=== PATIENT | female | born 1965 | race Hispanic/Latino ===

== ENCOUNTER → 2017-06-14 | Outpatient (CLI) | payer OTHER ==
--- NOTE | 2017-06-14 12:29 | Diagnostic Imaging Report ---
PROCEDURE: L-SPINE COMPLETE COMPARISON: None. INDICATIONS: LOW BACK PAIN FINDINGS: The lumbar spine is in anatomic alignment without evidence of fracture, spondylolisthesis, or spondylolysis. Vertebral body heights are maintained. Moderate disc space narrowing at L5-S1. Moderate facet arthrosis at L4-L5 and severe L5-S1. No significant neuroforaminal narrowing of bilateral obliques. Severe right and moderate left SI joint sclerosis. The paraspinal soft tissues are normal. CONCLUSION: Moderate degenerative changes in the lower lumbar spine with moderate disc space narrowing at L5-S1 with severe facet arthrosis at L5-S1. Dictated by: Dickson Xiao M.D. on 06/14/2017 at 12:29 Electronically approved by: Dickson Xiao M.D. on 06/14/2017 at 12:29
== END ==
LOC: RAD 11:43
PROVIDERS: ATTEND Internal Medicine
DX: M54.5 Low back pain (principal)
CPT/HCPCS: 72110

== ENCOUNTER → 2017-08-02 | Outpatient (CLI) | payer OTHER ==
--- NOTE | 2017-08-06 08:20 | Diagnostic Imaging Report ---
#[id number] - MGSCRBIL #BILATERAL DIGITAL SCREENING MAMMOGRAM WITH CAD: 08/02/2017 CLINICAL: Routine screening. Comparison is made to exam dated: 07/28/2016 mammogram - [facility]. Current study contains 4 films. There are scattered fibroglandular elements in both breasts. Current study was also evaluated with a Computer Aided Detection (CAD) system. There are benign vascular calcifications in both breasts. There also are benign scattered calcifications in both breasts. No significant masses, calcifications, or other findings are seen in either breast. There has been no significant interval change. IMPRESSION: BENIGN There is no mammographic evidence of malignancy. A 1 year screening mammogram is recommended. The patient will be notified by letter of the results. Dann jimenez/marlene:08/03/2017 13:02:31 Renewals Manager: Jill HOROWITZ(Jesse)([place]), [facility] letter sent: Compared to Prior B9 Mammogram BI-RADS: 2 Benign
== END ==
LOC: MAMMO 09:20
PROVIDERS: ATTEND Internal Medicine
DX: Z12.31 Encounter for screening mammogram for malignant neoplasm of breast (principal)
CPT/HCPCS: 77067

== ENCOUNTER → 2017-09-06 | Outpatient (CLI) | payer OTHER ==
--- NOTE | 2017-09-06 11:52 | Diagnostic Imaging Report ---
PROCEDURE:US GALLBLADDER COMPARISON:None. INDICATIONS:RUQ PAIN TECHNIQUE: Cabrera-scale and color doppler transverse and longitudinal images of the right upper quadrant of the abdomen were obtained. FINDINGS: Liver: 14.9 cm in right mid-clavicular line. Increased echogenicity. No masses. Main portal vein: 1.1 cm, hepatopetal flow Gallbladder: No stones, sludge, wall thickening, or pericholecystic fluid. Common Bile Duct: 0.3 cm Sonographic Cowart's sign: Negative Right kidney: 10.5 cm. Normal echogenicity. No solid masses or hydronephrosis. Pancreas: The visualized portions are unremarkable. Inferior vena cava: Patent Aorta: Within normal limits Ascites: None in the right upper quadrant of the abdomen. CONCLUSION: 1. Diffuse hepatic steatosis. No focal lesions. 2. No sonographic evidence of cholelithiasis or cholecystitis. Javier Reynolds M.D. Dictated by: Javier Reynolds M.D. on 09/06/2017 at 11:55 Electronically approved by: Javier Reynolds M.D. on 09/06/2017 at 11:55
== END ==
LOC: US 10:38
PROVIDERS: ATTEND Internal Medicine
DX: R10.11 Right upper quadrant pain (principal)
CPT/HCPCS: 76705

== ENCOUNTER → 2017-09-20 | Outpatient (CLI) | payer OTHER ==
--- NOTE | 2017-09-20 20:43 | Diagnostic Imaging Report ---
Hepatobiliary Scan with Gallbladder Ejection Fraction Clinical information: 52 F with RUQ abdominal pain x 1 month. Report: Following intravenous administration of 7 millicuries of Tc-99m mebrofenin, dynamic images of the abdomen in the anterior projection were obtained through 30 minutes. Sincalide (CCK analog) 1.8 micrograms was administered intravenously over 30 minutes with additional imaging for determination of gallbladder ejection fraction. Perfusion to the liver is normal. Extraction of tracer from the blood pool by the liver parenchyma is normal. Tracer is seen promptly within the biliary tract. The gallbladder begins to fill by 5 minutes post-injection of tracer and fills adequately. Tracer is seen in the small bowel by 24 minutes. The gallbladder ejection fraction with administration of sincalide is 97% (normal greater than 40%). Impression: 1. Filling of the gallbladder excludes the diagnosis of acute cystic duct obstruction/acute cholecystitis. 2. Normal gallbladder ejection fraction of 97% does not support the clinical diagnosis of chronic cholecystitis/gallbladder dyskinesia. Signed by: Dr. Jill Lyn M.D. on 09/20/2017 8:40 PM
== END ==
LOC: NM 12:54
PROVIDERS: ATTEND Internal Medicine
DX: R10.11 Right upper quadrant pain (principal)
CPT/HCPCS: 78227; A9537

== ENCOUNTER → 2017-10-29 | Outpatient (CLI) | payer OTHER ==
--- NOTE | 2017-10-29 13:04 | Diagnostic Imaging Report ---
PROCEDURE: Frontal and lateral views of the chest. COMPARISON: None. INDICATIONS: COUGH FINDINGS: Lines/tubes: None. Lungs: The lungs are well inflated and clear. There is no evidence of pneumonia or pulmonary edema. Pleura: There is no pleural effusion or pneumothorax. Heart and mediastinum: The heart and the mediastinum are normal. Bones: No acute bony abnormality. IMPRESSION: 1. No acute cardiopulmonary disease. Dictated by: Suleiman Braga M.D. on 10/29/2017 at 13:10 Electronically approved by: Suleiman Braga M.D. on 10/29/2017 at 13:10
== END ==
LOC: RAD 12:30
PROVIDERS: ATTEND Internal Medicine Pulmonary Disease
DX: R05 Cough (principal)
CPT/HCPCS: 71046

== ENCOUNTER 2018-04-25 17:25 | Inpatient (IN) | payer OTHER ==
[~2018-04-25] VITALS: Ht 157.5 cm; Wt 77.2 kg
--- OUTSIDE RECORDS SUMMARY | 2018-04-25 17:28 | XMS REPORT ---
[facility] Address Unknown Phone Unavailable Care Team Providers Care Dietitian Helper Name Role Phone LLOYD DODSON Unavailable Unavailable JOVAN MURPHY Unavailable Unavailable Problems This patient has no known problems. Allergies, Adverse Reactions, Alerts This patient has no known allergies or adverse reactions. Medications This patient has no known medications. Results Test Description Test Time Test Comments Text Results Atomic Results Result Comments CHEST 2 VIEWS 2017-10-29 13:11:00 [place] [address] Patient Name: ZEINA BILLINGSLEY MR #: [id number] : 1965 Age/Sex: 52/F Req #: [id number] Adm Physician: Ordered by: LLOYD DODSON MD Report #: [id number] Location: [facility] Room/Bed: Procedure: [id number] DX/CHEST 2 VIEWS Exam Date: 10/29/17 Exam Time: 1246 REPORT STATUS: Signed PROCEDURE: Frontal and lateral views of the chest. COMPARISON: None. INDICATIONS: COUGH FINDINGS: Lines/tubes: None. Lungs: The lungs are well inflated and clear. There is no evidence of pneumonia or pulmonary edema. Pleura: There is no pleural effusion or pneumothorax. Heart and mediastinum: The heart and the mediastinum are normal. Bones: No acute bony abnormality. IMPRESSION: 1. No acute cardiopulmonary disease. Dictated by: Suleiman Adair M.D. on 10/29/2017 at 13:10 Electronically approved by: Suleiman Adair M.D. on 10/29/2017 at 13:10 Dictated By: SULEIMAN ADAIR MD 10 Transcribed By: CRYSTAL on 10/29/171310 COPY TO: LLOYD DODSON MD HEPTOBILIARY W PHARM 2017-09-20 20:38:00 [place] [address] Patient Name: ZEINA BILLINGSLEY MR #: [id number] : 1965 Age/Sex: 52/F Req #: [id number] Adm Physician: Ordered by: JOVAN MURPHY MD Report #: [id number] Location: [place] Room/Bed: Procedure: [id number] NM/HEPTOBILIARY W PHARM Exam Date: 09/20/17 Exam Time: 1321 REPORT STATUS: Signed Hepatobiliary Scan with Gallbladder Ejection Fraction Clinical information: 52 F with RUQ abdominal pain x 1 month. Report: Following intravenous administration of 7 millicuries of Tc-99m mebrofenin, dynamic images of the abdomen in the anterior projection were obtained through 30 minutes. Sincalide (CCK analog) 1.8 micrograms was administered intravenously over 30 minutes with additional imaging for determination of gallbladder ejection fraction. Perfusion to the liver is normal. Extraction of tracer from the blood pool by the liver parenchyma is normal. Tracer is seen promptly within the biliary tract. The gallbladder begins to fill by 5 minutes post-injection of tracer and fills adequately. Tracer is seen in the small bowel by 24 minutes. The gallbladder ejection fraction with administration of sincalide is 97% (normal greater than 40%). Impression: 1. Filling of the gallbladder excludes the diagnosis of acute cystic duct obstruction/acute cholecystitis. 2. Normal gallbladder ejection fraction of 97% does not support the clinical diagnosis of chronic cholecystitis/gallbladder dyskinesia. Signed by: Dr. Aliya Lyn M.D. on 09/20/2017 8:40 PM Dictated By: ALIYA LYN MD 39 Transcribed By: SIERRA on 09/20/172039 COPY TO: JOVAN MURPHY MD US GALLBLADDER 2017-09-06 11:55:00 [place] [address] Patient Name: ZEINA BILLINGSLEY MR #: [id number] : 1965 Age/Sex: 52/F Req #: [id number] Adm Physician: Ordered by: JOVAN MURPHY MD Report #: [id number] Location: [place] Room/Bed: Procedure: [id number] US/US GALLBLADDER Exam Date: Exam Time: REPORT STATUS: Signed PROCEDURE: US GALLBLADDER COMPARISON: None. INDICATIONS: RUQ PAIN TECHNIQUE: Cabrera- scale and color doppler transverse and longitudinal images of the right upper quadrant of the abdomen were obtained. FINDINGS: Liver: 14.9 cm in right mid-clavicular line. Increased echogenicity. No masses. Main portal vein: 1.1 cm, hepatopetal flow Gallbladder: No stones, sludge, wall thickening, or pericholecystic fluid. Common Bile Duct: 0.3 cm Sonographic Cowart's sign: Negative Right kidney: 10.5 cm. Normal echogenicity. No solid masses or hydronephrosis. Pancreas: The visualized portions are unremarkable. Inferior vena cava: Patent Aorta: Within normal limits Ascites: None in the right upper quadrant of the abdomen. CONCLUSION: 1. Diffuse hepatic steatosis. No focal lesions. 2. No sonographic evidence of cholelithiasis or cholecystitis. Javier Saha M.D. Dictated by: Javier Saha M.D. on 09/06/2017 at 11:55 Electronically approved by: Javier Saha M.D. on 09/06/2017 at 11:55 Dictated By: JAVIER SAHA MD 1155 Transcribed By: CRYSTAL on 09/06/17 1155 COPY TO: JOVAN MURPHY MD MAMMOGRAPHY DIGITAL SCR BILAT [place] [address] Patient Name: ZEINA BILLINGSLEY MR #: [id number] : 1965 Age/Sex: 52/F Req #: [id number] [facility] Physician: Ordered by: JOVAN MURPHY MD Report #: [id number] Location: MAMMO Room/Bed: Procedure: [id number] MG/MAMMOGRAPHY DIGITAL SCR BILAT Exam Date: 08/02/17 Exam Time: 0933 REPORT STATUS: Signed #[id number] - MGSCRBIL #BILATERAL DIGITAL SCREENING MAMMOGRAM WITH CAD: 08/02/2017 CLINICAL: Routine screening. Comparison is made to exam dated: 07/28/2016 mammogram - [facility]. Current study contains 4 films. There are scattered fibroglandular elements in both breasts. Current study was also evaluated with a Computer Aided Detection (CAD) system. There are benign vascular calcifications in both breasts. There also are benign scattered calcifications in both breasts. No significant masses, calcifications, or other findings are seen in either breast. There has been no significant interval change. IMPRESSION: BENIGN There is no mammographic evidence of malignancy. A 1 year screening mammogram is recommended. The patient will be notified by letter of the results. Dann jimenez/marlene:08/03/2017 13:02:31 Chopping Machine Operator: Aliya HOROWITZ(Jesse)(M), [facility] letter sent: Compared to Prior B9 Mammogram BI-RADS: 2 Benign Dictated By: DANN MELENDREZ DO 1302 Transcribed By: MARLENE on 08/03/17 1302 COPY TO: JOVAN MURPHY MD SP LUMBAR, COMPLETE MIN 4VW [place] [address] Patient Name: ZEINA BILLINGSLEY MR #: [id number] : 1965 Age/Sex: 52/F Req #: [id number] Adm Physician: Ordered by: JOVAN MURPHY MD Report #: [id number] Location: [facility] Room/Bed: Procedure: [id number] DX/SP LUMBAR, COMPLETE MIN 4VW Exam Date: 06/14/17 Exam Time: 1200 REPORT STATUS: Signed PROCEDURE: L-SPINE COMPLETE COMPARISON: None. INDICATIONS: LOW BACK PAIN FINDINGS: The lumbar spine is in anatomic alignment without evidence of fracture, spondylolisthesis, or spondylolysis. Vertebral body heights are maintained. Moderate disc space narrowing at L5-S1. Moderate facet arthrosis at L4-L5 and severe L5-S1. No significant neuroforaminal narrowing of bilateral obliques. Severe right and moderate left SI joint sclerosis. The paraspinal soft tissues are normal. CONCLUSION: Moderate degenerative changes in the lower lumbar spine with moderate disc space narrowing at L5-S1 with severe facet arthrosis at L5-S1. Dictated by: Dickson Leroy M.D. on 06/14/2017 at 12:29 Electronically approved by: Dickson Leroy M.D. on 06/14/2017 at 12:29 Dictated By: DICKSON LEROY MD 122 Transcribed By: CRYSTAL on 06/14/171228 COPY TO: JOVAN MURPHY MD KNEE RIGHT THREE VIEWS [place] [address] Patient Name: ZEINA BILLINGSLEY MR #: [id number] : 1965 Age/Sex: 51/F Req #: [id number] [facility] Physician: Ordered by: JOVAN MURPHY MD Report #: [id number] Location: [facility] Room/Bed: Procedure: [id number] DX/KNEE RIGHT THREE VIEWS Exam Date: 01/26/17 Exam Time: 958 REPORT STATUS: Signed PROCEDURE: X-RAY RIGHT KNEE, THREE OR MORE VIEWS COMPARISON: None. INDICATIONS: CHRONIC PAIN KNEE FINDINGS: The bones are well-mineralized. There are no fractures, subluxations, lytic or blastic lesions. Joint spaces are preserved. There is no evidence of a joint effusion. CONCLUSION: No acute osseous abnormalities. Dictated by: Per Wood M.D. on 01/26/2017 at 12:05 Electronically approved by: Per Wood M.D. on 01/26/2017 at 12:05 Dictated By: PER WOOD MD 04 Transcribed By: CRYSTAL on 01/26/17 120 COPY TO: JOVAN MURPHY MD SP LUMBAR, COMPLETE MIN 4VW [place] [address] Patient Name: ZEINA BILLINGSLEY MR #: [id number] : 1965 Age/Sex: 51/F Req #: [id number] Adm Physician: Ordered by: JOVAN MURPHY MD Report #: [id number] Location: [facility] Room/Bed: Procedure: [id number] DX/SP LUMBAR, COMPLETE MIN 4VW Exam Date: 01/26/17 Exam Time: 0959 REPORT STATUS: Signed PROCEDURE: L-SPINE COMPLETE COMPARISON: None. INDICATIONS: CHRONIC BACK PAIN FINDINGS: There are 5 lumbar-type vertebral bodies. The vertebral bodies are well-aligned without evidence of spondylolisthesis. There are no fractures, lytic or blastic lesions. Mild disc space narrowing and facet arthrosis at L5-S1. The disc-space heights are otherwise well-maintained. The sacroiliac joints are unremarkable. CONCLUSION: No acute osseous abnormalities. Mild degenerative changes at L5-S1. Dictated by: Per Wood M.D. on 01/26/2017 at 13:15 Electronically approved by: Per Wood M.D. on 01/26/2017 at 13:15 Dictated By: PER WOOD MD Transcribed By: CRYSTAL on 01/26/171314 COPY TO: JOVAN MURPHY MD CT BRAIN WO [place] [address] Patient Name: ZEINA BILLINGSLEY MR #: [id number] : 1965 Age/Sex: 51/F [facility] #: [id number] Req #: [id number] Adm Physician: Ordered by: JOVAN MURPHY MD Report #: [id number] Location: CT Room/Bed: Procedure: [id number] CT/CT BRAIN WO Exam Date: 11/08/16 Exam Time: 1435 REPORT STATUS: Signed EXAMINATION: Head CT HISTORY: Left-sided headache, dizziness for the last 3 days. COMPARISON: None. TECHNIQUE: Multidetector axial images were obtained with, without contrast from the foramen magnum to the vertex . The images were reconstructed using brain and bone algorithms. Thin section brain images were reformatted into coronal and sagittal planes. Intravenous contrast: None. Motion/streaking artifact limits the evaluation of the skull base and posterior cranial fossa. FINDINGS: Parenchyma: 1. No abnormal densities. 2. No mass or hemorrhage. No CT evidence of acute territorial vascular insult. Extra-axial spaces:No abnormal density. No extra-axial fluid collections Brain volume: Normal for age. Ventricles: No hydrocephalus or displacement. Arteries: No density suggestive of thrombus. Dural sinuses: No abnormal density. Extra-axial spaces: No abnormal density. Foramen magnum: No mass, Chiari malformation, or basilar invagination. Slightly low lying cerebellar tonsils. Sella: Large, partially into, mostly CSF filled. Paranasal/mastoid sinuses: Imaged portions unremarkable. Skull/Scalp: No lytic or blastic lesions. No fractures. IMPRESSION: No intracranial abnormalities. Signed by: Dr. Jan Hawk M.D. on 11/08/2016 3:28 PM Dictated By: JAN HAWK MD 9470 Transcribed By: SIERRA on 11/08/16 1528 COPY TO: JOVAN MURPHY MD
[2018-04-25] MEDS ORDERED: SODIUM CHLORIDE 0.9% 1000ML 1,000 ML IV ONE (17:45)
[2018-04-25] MEDS ORDERED: SODIUM CHLORIDE 0.9% 1000ML 1,000 ML ONE (17:49)
[2018-04-25 17:55] LABS: BASOPHILS % 0.2 % (0.0-1.0); EOSINOPHILS % 0.1 % (0.0-6.0); HEMATOCRIT 43.5 % (34.2-44.1); HEMOGLOBIN 14.5 g/dL (12.0-16.0); LYMPHOCYTES # (AUTO) 3.1 (1.0-3.2); LYMPHOCYTES % 20.6 % (18.0-39.1); MEAN CORPUSCULAR HEMOGLOBIN 27.2 pg (28-32); MEAN CORPUSCULAR HGB CONC 33.3 g/dL (31-35); MEAN CORPUSCULAR VOLUME 81.6 fL (81-99); MONOCYTES # (AUTO) 1.1 (0.2-0.8); MONOCYTES % 7.3 % (4.4-11.3); NEUTROPHILS # (AUTO) 10.6 (2.1-6.9); NEUTROPHILS % 71.3 % (38.7-80.0); PLATELET COUNT 281 x10e3/uL (140-360); RED BLOOD COUNT 5.33 x10e6/uL (3.6-5.1); RED CELL DISTRIBUTION WIDTH 12.6 % (11.7-14.4)
[2018-04-25 17:58] LABS: CLARITY,URINE SL CLOUDY (CLEAR); COLOR,URINE YELLOW (YELLOW); LEUKOCYTE ESTERASE ,URINE TRACE (NEGATIVE); NITRITE,URINE NEGATIVE (NEGATIVE); PROTEIN,URINE DIPSTICK NEGATIVE (NEGATIVE)
[2018-04-25 17:59] LABS: BILIRUBIN,URINE NEGATIVE (NEGATIVE); KETONES,URINE NEGATIVE (NEGATIVE); URINE UROBILINOGEN 0.2 mg/dL (0.2 - 1)
[2018-04-25 18:11] LABS: ALANINE AMINOTRANSFERASE 34 IU/L (0-55); ALBUMIN 3.9 g/dL (3.5-5.0); ALBUMIN/GLOBULIN RATIO 1.1 (0.8-2.0); ALKALINE PHOSPHATASE 73 IU/L (40-150); ANION GAP 14.6 mmol/L (8-16); BACTERIA,URINE FEW /HPF; BLOOD UREA NITROGEN 10 mg/dL (7-26); BUN/CREATININE RATIO 13 (6-25); CALCIUM 9.6 mg/dL (8.4-10.2); CARBON DIOXIDE 24 mmol/L (22-29); CHLORIDE 103 mmol/L (98-107); CREATININE, SERUM 0.79 mg/dL (0.57-1.11); EPITHELIAL CELLS,URINE FEW /LPF; EST GLOMERULAR FILTRATION RATE > 60 ML/MIN (60-); GLUCOSE 126 mg/dL (74-118); POTASSIUM 3.6 mmol/L (3.5-5.1); RBC,URINE 0-5 /HPF (0-5); SODIUM 138 mmol/L (136-145)
--- NOTE | 2018-04-25 18:52 | Diagnostic Imaging Report ---
EXAM: CT Abdomen and Pelvis WITHOUT contrast INDICATION: Abdominal pain. Flank pain. Back pain. COMPARISON: None TECHNIQUE: Abdomen and pelvis were scanned utilizing a multidetector helical scanner from the lung base to the pubic symphysis without administration of IV contrast. Absence of intravenous contrast decreases sensitivity for detection of focal lesions and vascular pathology. Coronal and sagittal reformations were obtained. Routine protocol was performed. IV CONTRAST: None. ORAL CONTRAST: Water RADIATION DOSE: Total DLP: 492.29 mGy*cm Estimated effective dose: (DLP x 0.015 x size factor) mSv All CT scans are performed using radiation dose reduction techniques. Technical factors are evaluated and adjusted to ensure appropriate moderation of exposure. Automated dose management technology is applied to adjust the radiation dose to minimize exposure while achieving a diagnostic-quality image. COMPLICATIONS: None FINDINGS: LINES and TUBES: None. LOWER THORAX: Unremarkable HEPATOBILIARY: No focal hepatic lesions. No biliary ductal dilation. GALLBLADDER: No radio-opaque stones or sludge. No wall thickening. SPLEEN: No splenomegaly. PANCREAS: No focal masses or ductal dilatation. ADRENALS: No adrenal nodules KIDNEYS/URETERS: No hydronephrosis. No cystic or solid mass lesions. Left perinephric fat stranding with punctate stone at the left distal ureterovesicular junction. Mild left-sided hydroureter. GI TRACT: No abnormal distention, wall thickening, or evidence of bowel obstruction. Appendix is normal. PELVIC ORGANS/BLADDER: Unremarkable. LYMPH NODES: No lymphadenopathy. VESSELS: Unremarkable. PERITONEUM / RETROPERITONEUM: No free air or fluid. BONES: Unremarkable. SOFT TISSUES: Unremarkable. IMPRESSION: 1. Left perinephric fat stranding with punctate stone at the left distal ureterovesicular junction. Mild left-sided hydroureter. Signed by: Dr. Monty Armendariz M.D. on 04/25/2018 6:49 PM
[2018-04-25] MEDS ORDERED: CEFTRIAXONE SOD 1 GM/NS 50 ML 50 ML IV ONE (19:00)
[2018-04-25] MEDS ORDERED: CEFTRIAXONE SOD 1 GM VIAL ONE (19:06)
[2018-04-25] MEDS ORDERED: ACETAMINOPHEN 325 MG TAB PO ONE (19:15)
[2018-04-25] MEDS ORDERED: KETOROLAC TROMETHAMINE 30 MG/ML VIAL IV ONE (19:15)
[2018-04-25 19:30] VITALS: BP 130/74
[2018-04-25] MEDS ORDERED: DIPHENHYDRAMINE HCL INJ 50 MG/ML VIAL IV PRN (22:00)
[2018-04-25] MEDS ORDERED: ZOLPIDEM TARTRATE 5 MG TAB PO PRN (22:00)
[2018-04-25] MEDS ORDERED: MORPHINE SULFATE INJ 4 MG/ML INJ 1ML IV PRN (22:00)
[2018-04-25] MEDS ORDERED: ENALAPRILAT IV INJ 1.25 MG/ML VIAL IV PRN (22:00)
[2018-04-26] VITALS (9 sets, daily range): BP systolic 107–140; BP diastolic 55–78
[2018-04-26] MEDS: SODIUM CHLORIDE 0.9% 1000ML 1,000 ML IV SCH ×4 (00:34→21:59)
--- NOTE | 2018-04-26 07:20 | NUR ---
Patient was rounded throughout the night, patient condition throughout the night was stable, patient endorsed to next shift for continuity of care.
[2018-04-26 08:07] LABS: BASOPHILS % 0.2 % (0.0-1.0); EOSINOPHILS % 0.2 % (0.0-6.0); HEMATOCRIT 39.5 % (34.2-44.1); HEMOGLOBIN 13.2 g/dL (12.0-16.0); LYMPHOCYTES # (AUTO) 2.6 (1.0-3.2); LYMPHOCYTES % 23.4 % (18.0-39.1); MEAN CORPUSCULAR HGB CONC 33.4 g/dL (31-35); MEAN CORPUSCULAR VOLUME 80.8 fL (81-99); MONOCYTES % 8.8 % (4.4-11.3); NEUTROPHILS # (AUTO) 7.5 (2.1-6.9); NEUTROPHILS % 66.9 % (38.7-80.0); PLATELET COUNT 250 x10e3/uL (140-360); RED BLOOD COUNT 4.89 x10e6/uL (3.6-5.1); RED CELL DISTRIBUTION WIDTH 12.4 % (11.7-14.4)
[2018-04-26 08:28] LABS: ANION GAP 12.8 mmol/L (8-16); BLOOD UREA NITROGEN 9 mg/dL (7-26); BUN/CREATININE RATIO 12 (6-25); CALCIUM 8.4 mg/dL (8.4-10.2); CARBON DIOXIDE 21 mmol/L (22-29); CHLORIDE 107 mmol/L (98-107); CREATININE, SERUM 0.73 mg/dL (0.57-1.11); EST GLOMERULAR FILTRATION RATE > 60 ML/MIN (60-); GLUCOSE 121 mg/dL (74-118); POTASSIUM 3.8 mmol/L (3.5-5.1); SODIUM 137 mmol/L (136-145)
[2018-04-26] MEDS ORDERED: CEFTRIAXONE SOD 1 GM VIAL IV SCH (09:00)
[2018-04-26] MEDS: FAMOTIDINE 20 MG/2 ML VIAL IV SCH ×2 (09:00→16:42)
--- NOTE | 2018-04-26 09:03 | History and Physical ---
CHIEF COMPLAINT: Left-sided flank pain associated with fever and burning in urine for the last few days. HISTORY OF PRESENT ILLNESS: A 52-year-old pleasant female with a past medical history of no significant medical problems was admitted at [facility] last evening with the above complaints. The patient was seen in my office the day before yesterday with the above complaints. As per patient, she started having left-sided flank pain associated with burning and frequency of urine for the last few days, and hence the patient came to my office to see me in the office. I diagnosed the patient with acute pyelonephritis. I started the patient on oral Cipro. The next day the patient came back to my office, which was yesterday complaining of still having fever, nausea and vomiting. Hence, the patient was sent to ER. In the emergency room, the patient was seen by the emergency room doctor. The was diagnosed with left-sided pyelonephritis with obstructive ureteric renal stone, and admitted for further care and treatment. At present, the patient is lying comfortably in bed in no apparent distress. No chest pain. No shortness of breath. No nausea, vomiting or diarrhea now. No abdominal pain. No loss of consciousness. No palpitations. No headaches. No hematemesis. No melena, hematuria or dysuria. Low-grade fever plus. No witnessed seizures. As per the patient, she is feeling much better this morning. PAST MEDICAL HISTORY: GERD. MEDICATIONS: Omeprazole 40 mg p.o. daily. ALLERGIES: NO KNOWN DRUG ALLERGIES. FAMILY HISTORY: Noncontributory. PAST SURGICAL HISTORY 1. Hysterectomy in 2001. 2. Knee surgery in 2018. SOCIAL HISTORY: No smoking. No alcohol. No illicit drug use. and lives with family. REVIEW OF SYSTEMS: As per HPI. PHYSICAL EXAMINATION GENERAL: Patient is alert, awake and oriented times 3. No apparent distress lying in bed. VITALS: T-max is 100.2, pulse 89 per minute, respiratory rate 20 per minute, blood pressure is 126/60, saturation is 96%. SKIN: No cyanosis. No icterus. No pallor. HEENT: Normocephalic and atraumatic. PERRLA. NECK: Soft and supple. No JVD. LUNGS: Air entry bilaterally equal. CV: No murmur, gallop or rub. ABDOMEN: Soft and nontender. Bowel sounds plus. WEIGHT LOSS PHYSICIAN: Alert, awake and oriented times 3. No focal deficit. EXTREMITIES: No cyanosis. No clubbing. PERIPHERAL VASCULAR: No calf pain. LABS: This morning white count is 11.27 and on admission white count was 14.86, hemoglobin 13.2, hematocrit 39.5, and platelets 250,000. Sodium 138, potassium 3.6, chloride 103, bicarb 24, BUN 10, creatinine 0.7, glucose 126. LFTs noted. Urine with blood 2+, rbcs 0-5, wbcs 6-10. Cultures pending. CT of abdomen and pelvis shows left perinephric fat-stranding with stool at the left distal ureterovesical junction, mild left-sided hydroureter. ASSESSMENT: Acute pyelonephritis with left-sided obstructive ureteric renal stone. PLAN: Admit the patient to the medical floor. IV fluids. Rocephin 1 g IVPB q.12 h. Pancultures. Urology consultation with Dr. Platt. Further care and treatment as per the course of the patient in the hospital. Discussed with the patient and daughter in detail. Job#: [id number]
--- NOTE | 2018-04-26 15:46 | NUR ---
SOCIAL WORK INITIAL ASSESSMENT Accounts Payable Supervisor to bedside to discuss plan of care with patient/family. CM/SW role and care transitions discussed. Anticipated discharge plan discussed along with duration of care. CM/SW discussed patients right to make decisions in care. CM/SW work hours given. Patient lives: IN OWN HOUSE WITH FAMILY Admit/Transfer: VIA ED FROM HOME POA/Emergency contact: PASTOR ALEGRIA [phone] Current/Previous Home Health: NONE PCP/Follow-up Care: JEFFREY Current/Previous DME: NONE Other Services: NONE Employment Status: HOUSEWIFE Areas of Concerns: NONE Referral Needs: NONE Education Needs: NONE IMM/DUNCAN given and signed (if applicable): NA Goal for discharge: RETURN HOME CM/SW left business card at the bedside with contact information. Name and number was also written on the patients whiteboard. Patient verbalized understanding of discussion. CM will follow-up with ongoing discharge and transition of care needs.
--- NOTE | 2018-04-26 16:20 | NUR ---
Dr Platt here and left nephrostomy tube ordered and consent being obtained.
[2018-04-26 16:30] LABS: INR 1.09; PROTHROMBIN TIME 15.1 seconds (11.9-14.5)
[2018-04-26 16:31] LABS: PARTIAL THROMBOPLASTIN TIME 37.5 seconds (23.8-35.5)
--- NOTE | 2018-04-26 16:39 | Consultation ---
DATE OF CONSULTATION: April 26, 2018 UROLOGY CONSULTATION REASON FOR CONSULTATION: Left hydronephrosis. HISTORY OF PRESENT ILLNESS: Lexi Dhaliwal is a 52-year-old woman with no previous urological history. She denies previous hematuria, dysuria, urinary tract infections, or urolithiasis. Denies any prior urological evaluation. The patient had fever at home to 102. She also left-sided flank pain radiating to the left lower quadrant. She reported to the emergency room yesterday and was found to have a low-grade fever and possible urinary tract infection. She was not septic. She was not hemodynamically stable. She was admitted. She was kept n.p.o. just in case intervention was necessary. The patient spiked to 101.4 fever early this afternoon. The patient reported dysuria prior to coming to the hospital, but denies any hematuria. PAST MEDICAL AND SURGICAL HISTORY 1. 4, para 4. 2. Status post total abdominal hysterectomy without oophorectomy. 3. Status post right knee meniscal surgery. 4. Gastroesophageal reflux disease. CURRENT MEDICATIONS: Please refer to the MAR. ALLERGIES: NONE KNOWN. SOCIAL HISTORY: The patient denies smoking, ethanol or drug use. The patient is a homemaker. She has a supportive family at the bedside. FAMILY HISTORY: Noncontributory to the active urological problems. REVIEW OF SYSTEMS: As consistent with the above history of present illness and past medical history. Otherwise, negative for all other systems. PHYSICAL EXAMINATION GENERAL: A healthy-appearing 52-year-old woman lying in bed in no apparent distress. She is warm to the touch and is spiking fever as we speak. ABDOMEN: Soft and nondistended. It is tender in the left flank with mild left-sided costovertebral angle tenderness. Kidneys are not palpable without hepatosplenomegaly. No obvious evidence of hernia. The patient is obese. For the remaining physical examination systems, please refer to the admission history and physical on the chart. LABORATORY STUDIES: The patient's CT scan of the abdomen and pelvis reveals a very small left distal ureteral stone with left hydroureteronephrosis and left perinephric stranding. Her white blood cell count upon admission was 14,860. Today, it is better at 11,270. Hemoglobin is 13.2 and platelets 250,000. The patient's creatinine is 0.73. Her calcium is normal at 8.4. Urinalysis significant for 6-10 wbcs without any significant rbcs, although there is 2+ blood in the urine on dipstick. ASSESSMENT 1. Left hydroureteronephrosis. 2. Left distal ureteral stone. 3. Left pyelonephritis. 4. Urinary tract infection. 5. Impending urosepsis with current spike in fever. 6. Leukocytosis. 7. Left renal colic. 8. Obesity. 9. Microhematuria. PLAN: I discussed with the patient the risks, benefits and alternatives, including ureteral stenting versus percutaneous nephrostomy. I recommend to proceed with emergent left percutaneous nephrostomy with obtaining of a culture. Continued intravenous antibiotics. Once the patient is completely cooled off, we may take her to the operating room to perform ureteroscopy, place a stent and remove her nephrostomy. Ongoing urological followup is a must. The patient understands the risks, benefits and alternatives of various modalities, and elects to proceed with percutaneous nephrostomy as recommended. Thank you very much for involving us in the care of your patient. Will be happy to follow her along with you, as well as an outpatient. Job#: [id number] RI cc:JOVAN MURPHY M.D.
--- NOTE | 2018-04-26 17:10 | Diagnostic Imaging Report ---
EXAM: Renal Ultrasound INDICATION: Obstructing stone on the left with left hydroureter, query hydronephrosis. COMPARISON: CT Abdomen/Pelvis 04/25/2018. TECHNIQUE: Transverse and longitudinal images of the kidneys and bladder were obtained. FINDINGS: Right Kidney: Length: 10.8 x 5.0 x 5.3 cm Appearance: Normal echogenicity. Collecting system: No hydronephrosis Stones: None Cyst/Mass: None Left Kidney: Length: 10.9 x 5.1 x 4.3 cm Appearance: Normal echogenicity. Collecting system: No hydronephrosis Stones: None Cyst/Mass: None Bladder: Unremarkable in appearance. No ureteral jets are seen bilaterally. IMPRESSION: Unremarkable renal ultrasound. No evidence of hydronephrosis. Signed by: Dr. Ted Dias MD on 04/26/2018 5:07 PM
[2018-04-26] MEDS: ACETAMINOPHEN 325 MG TAB PO PRN (19:59)
--- NOTE | 2018-04-26 20:00 | NUR ---
PATIENT HAS A TEMPERATURE OF 100.0 AND SHE C/O LEFT FLANK PAIN WITH PAIN SCORE #4. MEDICATED WITH TYLENOL ORDERED, EXTRA BLANKETS REMOVED FROM THE PATIENT. NO RESPIRATORY DISTRESS OBSERVED, FAMILY MEMBERS VISITING WITH HER AND CALL LIGHT WITHIN EASY REACH.
[2018-04-26] MEDS ORDERED: SODIUM CHLORIDE 0.9% 50ML 50 ML ONE (21:21)
[2018-04-26] MEDS: CEFTRIAXONE SOD 1 GM/NS 50 ML 50 ML IV SCH (21:35)
--- NOTE | 2018-04-26 23:37 | NUR ---
ASSISTED PATIENT WITH ADLS, NO DISTRESS OBSERVED AND SHE DENIES PAIN AT THIS TIME. CALL LIGHT WITHIN EASY REACH, SHE'S INSTRUCTED TO CALL FOR ASSISTANCE NEEDED.
[2018-04-27] VITALS (8 sets, daily range): BP systolic 104–127; BP diastolic 55–77
--- NOTE | 2018-04-27 03:38 | NUR ---
RESTING IN BED WITH EYES OPEN, NO DISTRESS OBSERVED AND HE DENIES PAIN. URINE STRAINED SEVERAL TIMES, NO STONES OBSERVED. CALL LIGHT WITHIN EASY REACH, INSTRUCTED TO CALL FOR ASSISTANCE NEEDED. Addendum: 04/27/18 at 0353 by Nathaly Day RN SHE DENIES PAIN.
[2018-04-27] MEDS: ACETAMINOPHEN 325 MG TAB PO PRN (04:01)
[2018-04-27 05:26] LABS: BASOPHILS % 0.4 % (0.0-1.0); EOSINOPHILS # (AUTO) 0.2 (0.0-0.4); EOSINOPHILS % 2.5 % (0.0-6.0); HEMATOCRIT 39.1 % (34.2-44.1); HEMOGLOBIN 12.6 g/dL (12.0-16.0); LYMPHOCYTES # (AUTO) 2.7 (1.0-3.2); LYMPHOCYTES % 31.2 % (18.0-39.1); MEAN CORPUSCULAR HEMOGLOBIN 26.8 pg (28-32); MEAN CORPUSCULAR HGB CONC 32.2 g/dL (31-35); MONOCYTES # (AUTO) 0.9 (0.2-0.8); MONOCYTES % 10.7 % (4.4-11.3); NEUTROPHILS # (AUTO) 4.7 (2.1-6.9); NEUTROPHILS % 54.7 % (38.7-80.0); PLATELET COUNT 256 x10e3/uL (140-360); RED BLOOD COUNT 4.71 x10e6/uL (3.6-5.1); RED CELL DISTRIBUTION WIDTH 12.2 % (11.7-14.4)
[2018-04-27 05:57] LABS: ALANINE AMINOTRANSFERASE 25 IU/L (0-55); ALBUMIN/GLOBULIN RATIO 0.9 (0.8-2.0); ALKALINE PHOSPHATASE 57 IU/L (40-150); ANION GAP 12.9 mmol/L (8-16); BLOOD UREA NITROGEN 7 mg/dL (7-26); BUN/CREATININE RATIO 9 (6-25); CALCIUM 8.6 mg/dL (8.4-10.2); CARBON DIOXIDE 23 mmol/L (22-29); CHLORIDE 110 mmol/L (98-107); CREATININE, SERUM 0.75 mg/dL (0.57-1.11); EST GLOMERULAR FILTRATION RATE > 60 ML/MIN (60-); GLUCOSE 113 mg/dL (74-118); POTASSIUM 3.9 mmol/L (3.5-5.1); SODIUM 142 mmol/L (136-145)
[2018-04-27] MEDS: FAMOTIDINE 20 MG/2 ML VIAL IV SCH ×2 (08:57→16:24)
[2018-04-27] MEDS: CEFTRIAXONE SOD 1 GM/NS 50 ML 50 ML IV SCH ×2 (08:57→20:27)
--- NOTE | 2018-04-27 09:36 | NUR ---
RECEIVED PATIENT FROM OBS ROOM 175. PATIENT IS AWAKE, ALERT, AND IN STABLE CONDITION WITH NO S/S OF RESPIRATORY DISTRESS. PATIENT C/O PAIN BUT WANTS TO SHOWER FIRST BEFORE RECEIVING PAIN MEDICATION. URINE COLLECTION HAT PLACED ON TOILET AND PATIENT REMAINS AWARE OF STAFF'S NEED TO STRAIN URINE. DAUGHTER PRESENT IN ROOM.
--- NOTE | 2018-04-27 10:01 | NUR ---
patient transferred to floor. all personal belongings gathered by patient. vitals stable with no distress. family at BS.
[2018-04-27] MEDS: SODIUM CHLORIDE 0.9% 1000ML 1,000 ML IV SCH ×2 (10:30→20:27)
--- NOTE | 2018-04-27 15:57 | NUR ---
CALL PLACED OUT TO DR. MURPHY REGARDING PATIENT VOMITING TWICE- AWAITING A CALLBACK FOR MEDICATION ORDER.
[2018-04-27] MEDS ORDERED: ACETAMINOPHEN 325 MG TAB PO PRN (16:30)
[2018-04-27] MEDS: ONDANSETRON HCL 4 MG ORAL DISINTEGRATING TAB PO PRN (17:10)
[2018-04-27] MEDS: PANTOPRAZOLE 40 MG 10ML VIAL IV SCH (17:13)
[2018-04-27] MEDS: MORPHINE SULFATE INJ 4 MG/ML INJ 1ML IV PRN (17:15)
--- NOTE | 2018-04-27 18:56 | NUR ---
PATIENT IS IN STABLE CONDITION WITH NO S/S OF RESPIRATORY DISTRESS. NO PAIN VOICED. IV FLUIDS INFUSING. FAMILY MEMBERS PRESENT IN ROOM. CALL LIGHT IS WITHIN REACH, PATIENT INSTRUCTED TO CALL FOR ASSISTANCE NEEDED. REPORT GIVEN TO ONCOMING NURSE.
--- NOTE | 2018-04-27 19:10 | NUR ---
RECEIVED PATIENT IN BED WITH FAMILY AT BEDSIDE. NO S/S OF RESP DISTRESS. CALL LIGHT WITHIN REACH AND INSTRUCTED TO CALL FOR ASSISTANCE. BED ALARM REFUSED.
--- NOTE | 2018-04-27 22:44 | NUR ---
Patient C/O SERRANO, and requesting tylenol and ice bag.
[2018-04-28] VITALS (7 sets, daily range): BP systolic 107–121; BP diastolic 63–78
[2018-04-28] MEDS: SODIUM CHLORIDE 0.9% 1000ML 1,000 ML IV SCH ×3 (04:54→20:10)
[2018-04-28 05:35] LABS: ANION GAP 9.8 mmol/L (8-16); BLOOD UREA NITROGEN 5 mg/dL (7-26); BUN/CREATININE RATIO 6 (6-25); CALCIUM 8.8 mg/dL (8.4-10.2); CARBON DIOXIDE 25 mmol/L (22-29); CHLORIDE 107 mmol/L (98-107); CREATININE, SERUM 0.77 mg/dL (0.57-1.11); EST GLOMERULAR FILTRATION RATE > 60 ML/MIN (60-); GLUCOSE 98 mg/dL (74-118); POTASSIUM 3.8 mmol/L (3.5-5.1); SODIUM 138 mmol/L (136-145)
--- NOTE | 2018-04-28 07:30 | NUR ---
PATIENT IS AWAKE AND RESTING IN BED- PATIENT IS IN STABLE CONDITION WITH NO S/S OF RESPIRATORY DISTRESS. PATIENT STATES CURRENT LEFT FLANK PAIN IS 4/10 BUT DOES NOT WANT ANY MEDICATION AT THIS TIME. IV FLUIDS INFUSING. DAUGHTER PRESENT IN ROOM. CALL LIGHT IS WITHIN REACH, PATIENT INSTRUCTED TO CALL FOR ASSISTANCE NEEDED.
[2018-04-28] MEDS: FAMOTIDINE 20 MG/2 ML VIAL IV SCH ×2 (09:00→17:26)
[2018-04-28] MEDS: PANTOPRAZOLE 40 MG 10ML VIAL IV SCH (09:00)
[2018-04-28] MEDS: CEFTRIAXONE SOD 1 GM/NS 50 ML 50 ML IV SCH ×2 (09:38→20:10)
[2018-04-28] MEDS ORDERED: ACETAMINOPHEN 325 MG TAB PO PRN ×2 (09:45→10:15)
[2018-04-28] MEDS ORDERED: IBUPROFEN 400 MG TAB PO NR (14:30)
[2018-04-28] MEDS ORDERED: CITRATE OF MAGNESIA 300ML BOTTLE PO NR ×2 (16:30→20:00)
--- NOTE | 2018-04-28 19:00 | NUR ---
RECEIVED PATIENT IN BED WITH FAMILY AT BEDSIDE. NO S/S OF RESP DISTRESS. CALL LIGHT WITHIN REACH AND INSTRUCTED TO CALL FOR ASSISTANCE. BED ALARM REFUSED.
--- NOTE | 2018-04-28 19:01 | NUR ---
PATIENT IS RESTING IN BED- IN STABLE CONDITION WITH NO S/S OF RESPIRATORY DISTRESS. NO PAIN VOICED. IV FLUIDS INFUSING. DAUGHTER AND PRESENT IN ROOM. PATIENT IS AWARE SHE WILL BE NPO AFTER MIDNIGHT TONIGHT. CALL LIGHT IS WITHIN REACH, PATIENT INSTRUCTED TO CALL FOR ASSISTANCE NEEDED. REPORT GIVEN TO ONCOMING NURSE.
[2018-04-29] VITALS (7 sets, daily range): BP systolic 102–120; BP diastolic 63–73
[2018-04-29] MEDS: SODIUM CHLORIDE 0.9% 1000ML 1,000 ML IV SCH ×3 (05:59→20:37)
[2018-04-29 06:15] LABS: BASOPHILS % 0.3 % (0.0-1.0); EOSINOPHILS # (AUTO) 0.2 (0.0-0.4); EOSINOPHILS % 3.8 % (0.0-6.0); HEMATOCRIT 42.3 % (34.2-44.1); HEMOGLOBIN 13.6 g/dL (12.0-16.0); LYMPHOCYTES # (AUTO) 2.3 (1.0-3.2); LYMPHOCYTES % 38.2 % (18.0-39.1); MEAN CORPUSCULAR HEMOGLOBIN 26.9 pg (28-32); MEAN CORPUSCULAR HGB CONC 32.2 g/dL (31-35); MEAN CORPUSCULAR VOLUME 83.8 fL (81-99); MONOCYTES # (AUTO) 0.5 (0.2-0.8); MONOCYTES % 7.4 % (4.4-11.3); NEUTROPHILS % 49.8 % (38.7-80.0); PLATELET COUNT 318 x10e3/uL (140-360); RED BLOOD COUNT 5.05 x10e6/uL (3.6-5.1); RED CELL DISTRIBUTION WIDTH 12.4 % (11.7-14.4)
[2018-04-29 06:39] LABS: ALANINE AMINOTRANSFERASE 29 IU/L (0-55); ALBUMIN 3.3 g/dL (3.5-5.0); ALBUMIN/GLOBULIN RATIO 0.9 (0.8-2.0); ALKALINE PHOSPHATASE 67 IU/L (40-150); ANION GAP 11.9 mmol/L (8-16); BLOOD UREA NITROGEN 7 mg/dL (7-26); BUN/CREATININE RATIO 9 (6-25); CALCIUM 8.8 mg/dL (8.4-10.2); CARBON DIOXIDE 19 mmol/L (22-29); CHLORIDE 114 mmol/L (98-107); CREATININE, SERUM 0.79 mg/dL (0.57-1.11); EST GLOMERULAR FILTRATION RATE > 60 ML/MIN (60-); GLUCOSE 97 mg/dL (74-118); POTASSIUM 3.9 mmol/L (3.5-5.1); SODIUM 141 mmol/L (136-145)
[2018-04-29] MEDS ORDERED: IOPAMIDOL 300MG/ML 100 ML INFUS..BTL IV ONE (08:06)
--- NOTE | 2018-04-29 08:15 | NUR ---
Pt left for IVP
--- NOTE | 2018-04-29 09:50 | NUR ---
Pt received resting in bed s/p IVP. Oriented to staff and surroundings. Encouraged to press call vazquez if help needed. All meds given as ordered. Call vazquez within reach. Emotional support given. Will monitor
[2018-04-29] MEDS: PANTOPRAZOLE 40 MG 10ML VIAL IV SCH (10:01)
[2018-04-29] MEDS: CEFTRIAXONE SOD 1 GM/NS 50 ML 50 ML IV SCH ×2 (10:01→20:37)
[2018-04-29] MEDS: FAMOTIDINE 20 MG/2 ML VIAL IV SCH (10:01)
[2018-04-29] MEDS ORDERED: SODIUM CHLORIDE 0.9% 50ML 50 ML ONE (14:39)
[2018-04-29] MEDS: MORPHINE SULFATE INJ 4 MG/ML INJ 1ML IV PRN (14:40)
--- NOTE | 2018-04-29 16:49 | Diagnostic Imaging Report ---
Intravenous pyelogram Indication: Persistent left flank pain, evaluate for stone. Technique: An intravenous pyelogram was performed following the intravenous administration of contrast. Comparison: CT abdomen/pelvis 04/25/2018 and renal ultrasound 04/26/2018. TECHNIQUE/FINDINGS: The pan devulcanizer helper film demonstrates a normal bowel gas pattern. Bilateral pelvic calcifications likely correspond to calcified phleboliths present on CT abdomen/pelvis from 04/25/2018. The punctate 1 mm left UVJ stone present on prior CT is not well-visualized. A total of 100 cc of Omnipaque 300 was administered intravenously. The right renal collecting system and ureter are well opacified and demonstrate no evidence of stone or filling defect. No evidence of hydronephrosis. The left collecting system is not as well opacified. There is mild left distal hydroureter. No evidence of hydronephrosis on the left. No definite mass lesion is visualized. The bladder is normal in size, shape, and contour. The post void image is unremarkable. IMPRESSION: No definite radiographic evidence of renal or ureteral stone. The punctate 1 mm left UVJ stone present on prior CT from 04/25/2018 is not well-visualized and is likely below the resolution of this study. Suboptimal opacification of the left renal collecting system. Mild left distal hydroureter without evidence of hydronephrosis. Unremarkable appearance of the right renal collecting system and ureter. Signed by: Dr. Ted Dias MD on 04/29/2018 4:45 PM
--- NOTE | 2018-04-29 19:20 | NUR ---
RECEIVED PATIENT RESTING IN BED, RESPIRATIONS EVEN AND UNLABORED. NO ACUTE DISTRESS NOTED. DAUGHTER AT BEDSIDE. PATIENT C/O HEADACHE. WILL MEDICATE PER MAR. CALL LIGHT WITHIN REACH. INSTRUCT TO CALL FOR ASSISTANCE. BED IN THE LOWEST POSITION. CONTINUE TO MONITOR CLOSELY
[2018-04-30] VITALS: BP 94/66
[2018-04-30 02:17] VITALS: BP 94/66
[2018-04-30 04:00] VITALS: BP 116/69
[2018-04-30] MEDS: SODIUM CHLORIDE 0.9% 1000ML 1,000 ML IV SCH (05:14)
[2018-04-30] MEDS: MORPHINE SULFATE INJ 4 MG/ML INJ 1ML IV PRN (05:20)
[2018-04-30] MEDS: ONDANSETRON HCL 4 MG ORAL DISINTEGRATING TAB PO PRN (05:20)
[2018-04-30] MEDS ORDERED: PANTOPRAZOLE SOD 40 MG TABEC PO SCH (07:30)
[2018-04-30 08:10] VITALS: BP 108/71
[2018-04-30 08:13] VITALS: BP 108/71
[2018-04-30] MEDS: CEFTRIAXONE SOD 1 GM/NS 50 ML 50 ML IV SCH (08:13)
--- NOTE | 2018-04-30 08:13 | NUR ---
Pt received resting in bed. All meds given as ordered. Call vazquez within reach. Pt for discharge today. Will monitor
[2018-04-30] MEDS ORDERED: BACTRIM DS TAB1 EACH PO (09:35)
[2018-04-30] MEDS ORDERED: TYLENOL WITH C1 EACH PO (09:36)
--- NOTE | 2018-04-30 09:50 | NUR ---
Pt given discharge instructions regarding meds, diet, activities, and follow up appointment with PCP with aid of special inspector. Pt verbalized understanding of teaching. Left floor in wheelchair to Private car.
== END 2018-04-30 09:58 | disposition home or self-care (01) | DRG 690 ==
LOC: ER 17:25 → ERHOLD 23:54 → IMCU 04-26 01:06 → OBSVTOIN 04-26 15:27 → MED/SURG3 04-27 09:30
PROVIDERS: ADMIT Internal Medicine; ATTEND Internal Medicine
DX: N13.6 Pyonephrosis (principal); K21.9 Gastro-esophageal reflux disease without esophagitis; E66.9 Obesity, unspecified; Z68.31 Body mass index [BMI] 31.0-31.9, adult; B96.20 Unspecified Escherichia coli [E. coli] as the cause of diseases classified elsewhere
CPT/HCPCS: 36415; 74176; 74400; 76770; 80048; 80053; 81001; 83605; 85025; 85610; 85730; 87040; 87086; 87186; 96361; 96367; 99284; G0378; J0696; J1885; J2270; J7030; Q9967

== ENCOUNTER → 2018-05-23 | Day surgery (SDC) | payer OTHER ==
[~2018-05-23] MED LIST: BACTRIM DS TAB1 EACH PO; BELLADONNA/OPIUM 30 MG SUPP RC ONE; CEFTRIAXONE SOD 1 GM/NS 50 ML 50 ML IV ONE; DEXAMETHASONE SOD PHOS INJ 4 MG/ML VIAL ONE; FENTANYL CITRATE/PF 100MCG/2 ML INJ ONE; GENTAMICIN 80MG/NS 100 ML 100 ML IV ONE; IOPAMIDOL 610MG/1ML 300 MG/ML VIAL IV ONE; KETOROLAC TROMETHAMINE 30 MG/ML VIAL ONE; OMEPRAZOLE40 MG PO; ONDANSETRON HCL INJ 2MG/ML 2ML 2 MG/ML VIAL ONE; PROPOFOL IV EMULSION 10 MG/ML 20 ML VIAL ONE; SEVOFLURANE INHAL SOLN 250 ML PEN BTL ONE; TYLENOL WITH C1 EACH PO
[2018-05-23 08:42] VITALS: BP 115/74
--- NOTE | 2018-05-30 17:21 | Operative Report ---
DATE OF PROCEDURE: 05/23/2018 SURGEON: Philippe Platt MD PREOPERATIVE DIAGNOSES: 1. History of urolithiasis. 2. History of complicated urinary tract infection. POSTOPERATIVE DIAGNOSES: 1. Left ureteral stricture. 2. Left hydronephrosis due to stricture. 3. History of complicated urinary tract infection. 4. Grade 1 cystocele. 5. Urethral hypermobility. 6. Mildly atrophic (senile) vaginitis. OPERATIONS PERFORMED: 1. Cystourethroscopy with bilateral ureteral catheterization and retrograde ureteropyelography (separately performed for the urinary tract infection). 2. Interpretation of retrograde ureteropyelography. 3. Supervision of fluoroscopy, no radiologist present. 4. Left ureteroscopy with dilation of ureteral stricture (surgery performed for the diagnosis of stricture). 5. Radiological services for supervision and interpretation of ureteroscopy. 6. Cystourethroscopy with insertion of left-sided indwelling ureteral stent (separate procedure performed to relieve the hydronephrosis). 7. Pelvic examination under anesthesia. ANESTHESIA: General. COMPLICATIONS: None. CLINICAL SUMMARY: Lexi Dhaliwal is a 53-year-old woman, who was admitted with severe urinary tract infection, distal stone, and hydroureteronephrosis. The patient's infection was treated. She did not exhibit due to septic symptoms and was sent home. She is brought electively to evaluate for any stones and management as needed. She was instructed to strain her urine, but she did not. She was not able to recover any stones since her hospitalization. She is brought for the above procedures. She is aware of the risks of bleeding, infection, injury to adjacent structures, need for additional procedures, and elected to proceed. OPERATIVE PROCEDURE IN DETAIL: Informed consent was verified. Lexi Dhaliwal was properly identified, taken to the operating room, placed on the cystoscopy table in a supine position. Anesthesia was uneventfully begun. The patient was then carefully and gently repositioned in the dorsal lithotomy position with all pressure points well padded. Her genitalia were prepared and draped in usual sterile fashion. The cystoscope sheath with obturator in place was atraumatically inserted into the patient's urethra without any strain. Panendoscopy revealed no suspicious mucosal lesions, no tumors, no stones, and no diverticula. Mild trabeculations were noted. Normally positioned and configured ureteral orifices were identified. A ureteral catheter was used to cannulate the right ureter and retrograde ureteropyelograms were performed. It was then inserted into the left ureter and retrograde ureteropyelograms were performed. A guidewire was then placed into the left ureter and guided to the level of the patient's kidney. A semi-rigid ureteroscope was inserted alongside the guidewire into the left ureter several centimeters proximal to the ureteral orifice. We identified the narrowing of the ureter. We gently dilated across this narrowing. This revealed a wider ureter proximal to this obstruction. No stone was identified. With cystoscopic and fluoroscopic guidance, a left-sided indwelling ureteral stent was then placed to coil in the patient's kidneys as well as the patient's bladder. The retaining sutures were cut short. The patient's bladder was drained. Interpretation of retrograde ureteropyelography: Contrast was instilled in a retrograde fashion bilaterally on the right-hand side. There were no tumors, no stones, and no diverticula. Unobstructed drainage was observed fluoroscopically on the left-hand side. There was fullness compared to the right-hand side. The stent was in good position. We coiled the patient's kidneys as well as the patient's bladder at the end of the case. No stones were identified. No suspicious lesions and no filling defects. Pelvic examination under anesthesia revealed a grade 1 cystocele with urethral hypermobility and mild atrophic (senile) vaginitis. There were no obvious mucosal lesions. There were no abnormal palpable pelvic masses that could be appreciated. The patient was uneventfully reversed from anesthesia and taken to recovery room in stable condition. There were no complications to the procedure. She tolerated the procedure well. Plans will be to return the patient to the operating room in several weeks to perform cystoscopy and stent removal in the office. Philippe MD Lc [place]/SUMEET /[id number]
== END | disposition home or self-care (01) ==
LOC: OR 05:16
PROVIDERS: ATTEND Urology
DX: N13.1 Hydronephrosis with ureteral stricture, not elsewhere classified (principal); N20.0 Calculus of kidney; N32.89 Other specified disorders of bladder; N81.10 Cystocele, unspecified; N36.41 Hypermobility of urethra; N95.2 Postmenopausal atrophic vaginitis; G47.33 Obstructive sleep apnea (adult) (pediatric); K21.9 Gastro-esophageal reflux disease without esophagitis; Z01.810 Encounter for preprocedural cardiovascular examination; Z87.440 Personal history of urinary (tract) infections
CPT/HCPCS: 52332; 52344; 74420; 93005; C1758 ×2; C2617; J0696; J1100; J1580; J1885; J2405; J2704; Q9967

== ENCOUNTER → 2018-07-24 | Day surgery (SDC) | payer OTHER ==
[~2018-07-24] MED LIST changes: -BELLADONNA/OPIUM 30 MG SUPP RC ONE; +BELLADONNA/OPIUM 60 MG SUPP PR ONE; -GENTAMICIN 80MG/NS 100 ML 100 ML IV ONE; +IOPAMIDOL 300MG/ML 50ML INFUS..BTL IV ONE; -IOPAMIDOL 610MG/1ML 300 MG/ML VIAL IV ONE; -KETOROLAC TROMETHAMINE 30 MG/ML VIAL ONE; +LIDOCAINE HCL 2% LOCAL INJ 5 ML SDV VIAL INJ ONE; +MIDAZOLAM HCL 2 MG/2 ML VIAL ONE
[2018-07-24 11:20] VITALS: BP 119/77
--- NOTE | 2018-07-31 06:21 | Operative Report ---
DATE OF PROCEDURE: 07/24/2018 SURGEON: Philippe Platt MD PREOPERATIVE DIAGNOSES: 1. Left ureteral stricture. 2. Left indwelling ureteral stent. POSTOPERATIVE DIAGNOSES: 1. Left ureteral stricture. 2. Left indwelling ureteral stent. 3. Grade 2 cystocele. 4. Urethral hypermobility. 5. Atrophic (senile) vaginitis. OPERATIONS PERFORMED: 1. Cystourethroscopy with complicated removal of left indwelling ureteral stent (separate procedure performed for further diagnosis of the stent). 2. Left ureteroscopy (separate procedure performed to evaluate the left ureter in light of the ureteral stricture). 3. Interpretation of retrograde ureteropyelography. 4. Radiological services for supervision and interpretation of ureteroscopy. 5. Supervision of fluoroscopy, no radiologist present. 6. Pelvic examination under anesthesia. ANESTHESIA: General. COMPLICATIONS: None. CLINICAL SUMMARY: Lexi Dhaliwal is a 53-year-old woman with history of ureteral stricture. She had a stent placed. She brought a stone filter and was believed to have passed her stones. She is aware of the risks of bleeding, infection, injury to adjacent structures, and need for additional procedures and elected to proceed. OPERATIVE PROCEDURE IN DETAIL: Informed consent was verified. Lexi Dhaliwal was properly identified, taken the operating room, and placed on the cystoscopy table in supine position. Anesthesia was uneventfully begun. The patient was then carefully gently repositioned in dorsal lithotomy position with all pressure points well padded. Her genitalia were prepared and draped in usual sterile fashion. A 22.5-Maltese cystoscope sheath with obturator in place was atraumatically inserted in the patient's urethra and bladder was drained. Panendoscopy revealed no suspicious mucosal lesions, no tumors, no stones, and no diverticula. A stent was noted to be emerging in the left ureteral orifice and was not encrusted. There was mild mucosal inflammation around the region of the stent. A guidewire was then placed alongside the stent and guided to the level of the patient's kidney. The stent was then grasped, completely removed, and discarded. A semi-rigid ureteroscopy was then performed. The ureteroscope was then brought up into the left ureter and brought proximally as contrast was injected by the ureteroscope. There were no strictures. At this time, the previously dilated stricture was now wide open. No stones were identified and no suspicious lesions. The semi-rigid ureteroscope was withdrawn. Flexible ureteroscope was then brought up over the guidewire and guided at the level of the patient's kidney. Careful panendoscopy of the intrarenal collecting system revealed Zuhair's plaques, but there were no tumors, no residual stones, and no suspicious lesions. There were no proximal ureteral strictures. We carefully re-examined the ureters as we exited. It exhibited no strictures, no tumors, and no stones. Interpretation of retrograde ureteropyelography: Contrast was instilled in a retrograde fashion via the ureteroscope. There was a fullness in the left upper collecting system. There was no extravasation and no stones were visualized. There were no suspicious lesions. The ureters were unremarkable. Unobstructed drainage was observed fluoroscopically. The patient's bladder was drained. Cystoscope was withdrawn. Pelvic examination revealed a grade 2 cystocele with urethral hypermobility and atrophic vaginitis. No suspicious mucosal lesions were identified. There were no abnormal palpable pelvic masses that could be appreciated. The patient was then uneventfully reversed from anesthesia and taken to recovery room in stable condition. There were no complications of the procedure. She tolerated the procedure well. Plans will be to follow the patient up in the office in approximately 1 month at which point in time, we will begin to pursue metabolic stone workup in hopes of preventing future stones. Philippe Platt MD [place]/MODL /[id number] cc: Jes Bingham MD
== END | disposition home or self-care (01) ==
LOC: OR 07:23
PROVIDERS: ATTEND Urology
DX: N13.5 Crossing vessel and stricture of ureter without hydronephrosis (principal); Z46.6 Encounter for fitting and adjustment of urinary device; N20.1 Calculus of ureter; N13.30 Unspecified hydronephrosis; N39.3 Stress incontinence (female) (male); N39.0 Urinary tract infection, site not specified; R35.1 Nocturia; N81.10 Cystocele, unspecified; N36.41 Hypermobility of urethra; N95.2 Postmenopausal atrophic vaginitis; K21.9 Gastro-esophageal reflux disease without esophagitis; G47.30 Sleep apnea, unspecified; E66.9 Obesity, unspecified; Z01.810 Encounter for preprocedural cardiovascular examination; Z68.31 Body mass index [BMI] 31.0-31.9, adult
CPT/HCPCS: 52351; 74420; 88300; 93005; J0696; J1100; J2001; J2250; J2405; J2704; Q9967

== ENCOUNTER → 2018-08-05 | Outpatient (CLI) | payer OTHER ==
[~2018-08-05] MED LIST changes: -BELLADONNA/OPIUM 60 MG SUPP PR ONE; -CEFTRIAXONE SOD 1 GM/NS 50 ML 50 ML IV ONE; -DEXAMETHASONE SOD PHOS INJ 4 MG/ML VIAL ONE; -FENTANYL CITRATE/PF 100MCG/2 ML INJ ONE; -IOPAMIDOL 300MG/ML 50ML INFUS..BTL IV ONE; -LIDOCAINE HCL 2% LOCAL INJ 5 ML SDV VIAL INJ ONE; -MIDAZOLAM HCL 2 MG/2 ML VIAL ONE; -ONDANSETRON HCL INJ 2MG/ML 2ML 2 MG/ML VIAL ONE; -PROPOFOL IV EMULSION 10 MG/ML 20 ML VIAL ONE; -SEVOFLURANE INHAL SOLN 250 ML PEN BTL ONE
== END ==
LOC: MAMMO 12:23
PROVIDERS: ATTEND Internal Medicine
DX: Z12.31 Encounter for screening mammogram for malignant neoplasm of breast (principal)
CPT/HCPCS: 77067

== ENCOUNTER → 2018-12-24 | Outpatient (CLI) | payer OTHER ==
--- NOTE | 2018-12-24 11:10 | Diagnostic Imaging Report ---
Exam: KUB Comparison: CT abdomen and pelvis, April 25, 2018 Clinical history: Renal stone Findings: There is nonobstructive bowel gas pattern with retained feces in the colon. No evidence of radiopaque stones are noted along the course of bilateral renal collecting systems. Subcentimeter phleboliths are again noted in the pelvic region. The regional osseous structures are unremarkable. Impression: 1. No radiographic evidence of nephrolithiasis. Signed by: Dr. Darren Zhou MD on 12/24/2018 11:07 AM
== END ==
LOC: RAD 10:19
PROVIDERS: ATTEND Urology
DX: N20.0 Calculus of kidney (principal)
CPT/HCPCS: 74018

== ENCOUNTER → 2019-08-12 | Outpatient (CLI) | payer OTHER | LOC: MAMMO 12:42 | PROVIDERS: ATTEND Internal Medicine | DX: Z12.31 Encounter for screening mammogram for malignant neoplasm of breast (principal) | CPT/HCPCS: 77067 ==

== ENCOUNTER → 2019-12-02 | Outpatient (CLI) | payer OTHER ==
--- NOTE | 2019-12-02 09:02 | Diagnostic Imaging Report ---
Abdomen, one view (KUB) INDICATION: ^[id number] ^[id number] ^CALCULUS OF KIDNEY Comparison: None available. Discussion: Nonobstructive bowel gas pattern is noted. No radiographically apparent renal calculus is noted. Please note evaluation is limited due to overlying colonic stool. Pelvic phlebolith is noted. Negative for acute osseous abnormality. IMPRESSION: Limited evaluation due to overlying colonic stool contents. Negative for radiographic evidence of nephrolithiasis. Signed by: Caleb Cool MD on 12/02/2019 8:58 AM
== END ==
LOC: RAD 08:27
PROVIDERS: ATTEND Urology
DX: N20.0 Calculus of kidney (principal)
CPT/HCPCS: 74018

== ENCOUNTER → 2020-02-11 | Outpatient (CLI) | payer OTHER | LOC: RAD 10:35 | PROVIDERS: ATTEND Internal Medicine | DX: M25.541 Pain in joints of right hand (principal) ==

== ENCOUNTER → 2022-06-17 | Day surgery (SDC) | payer OTHER ==
[~2022-06-17] MED LIST changes: +DICYCLOMINE HCL10 MG PO; +GLYCOPYRROLATE INJ 0.2 MG/ML VIAL ONE; +HYOSCYAMINE SULFATE 0.5 MG/ML INJ ONE; +LACTATED RINGER'S 1,000 ML ONE; +LIDOCAINE HCL 2% LOCAL INJ 5 ML SDV VIAL INJ ONE; +MELOXICAM7.5 MG PO; +METOCLOPRAMIDE HCL 10 MG/2ML VIAL ONE; +MIDAZOLAM HCL 2 MG/2 ML VIAL ONE; +POVIDONE IODINE 0.05% 0.05 % ML PO ONE; +PROPOFOL IV EMULSION 10 MG/ML 20 ML VIAL ONE
[2022-06-17 08:49] VITALS: BP 122/76
== END | disposition home or self-care (01) ==
LOC: OR 07:14
PROVIDERS: ATTEND Internal Medicine Gastroenterology
DX: K29.70 Gastritis, unspecified, without bleeding (principal); K22.10 Ulcer of esophagus without bleeding; K22.89 Other specified disease of esophagus; K44.9 Diaphragmatic hernia without obstruction or gangrene; K21.9 Gastro-esophageal reflux disease without esophagitis; K64.8 Other hemorrhoids; N20.0 Calculus of kidney; Z01.810 Encounter for preprocedural cardiovascular examination; Z79.1 Long term (current) use of non-steroidal anti-inflammatories (NSAID)
CPT/HCPCS: 43239; 45378; 93005; J1980; J2001; J2250; J2765

== ENCOUNTER → 2022-07-06 | Outpatient (CLI) | payer OTHER ==
[~2022-07-06] MED LIST changes: -GLYCOPYRROLATE INJ 0.2 MG/ML VIAL ONE; -HYOSCYAMINE SULFATE 0.5 MG/ML INJ ONE; -LACTATED RINGER'S 1,000 ML ONE; -LIDOCAINE HCL 2% LOCAL INJ 5 ML SDV VIAL INJ ONE; -METOCLOPRAMIDE HCL 10 MG/2ML VIAL ONE; -MIDAZOLAM HCL 2 MG/2 ML VIAL ONE; -POVIDONE IODINE 0.05% 0.05 % ML PO ONE; -PROPOFOL IV EMULSION 10 MG/ML 20 ML VIAL ONE
== END ==
LOC: DX 13:27
PROVIDERS: ATTEND Internal Medicine
DX: Z13.820 Encounter for screening for osteoporosis (principal); N95.9 Unspecified menopausal and perimenopausal disorder
CPT/HCPCS: 77080

== ENCOUNTER → 2023-04-13 | Outpatient (REF) | payer OTHER | LOC: US 07:22 | PROVIDERS: ATTEND Nurse Practitioner | DX: R10.9 Unspecified abdominal pain (principal); K29.70 Gastritis, unspecified, without bleeding | CPT/HCPCS: 76700 ==